=== PATIENT | male | born 1990 | race African-American/Black ===

== ENCOUNTER 2019-03-11 12:22 | Emergency (ER) | payer MEDICAID ==
[~2019-03-11] VITALS: Ht 185.4 cm; Wt 77.3 kg
[2019-03-11] MEDS ORDERED: IBUPROFEN 600 MG TABLET PO ONE (13:30)
[2019-03-11 14:30] VITALS: BP 122/92
== END 2019-03-11 15:05 | disposition home or self-care (01) ==
LOC: EMS 12:24
DX: S02.2XXA Fracture of nasal bones, initial encounter for closed fracture (principal); F17.200 Nicotine dependence, unspecified, uncomplicated; F12.90 Cannabis use, unspecified, uncomplicated; W19.XXXA Unspecified fall, initial encounter; Y93.89 Activity, other specified; Y92.89 Other specified places as the place of occurrence of the external cause; Y99.8 Other external cause status
CPT/HCPCS: 70160